=== PATIENT | male | born 1950 | race Caucasian/White ===

== ENCOUNTER → 2018-12-14 14:30 | Outpatient (CLI) | payer OTHER, SELFPAY ==
[2018-12-24 11:58] LABS: Rubella Antibody IgG < 0.9 IU/mL (>15)
[2018-12-24 12:03] LABS: Rubeola Measles IgG > 300.00
== END ==
PROVIDERS: PCP Internal Medicine; Visit Provider Internal Medicine
DX: Z20.820 Contact with and (suspected) exposure to varicella (principal)
CPT/HCPCS: 36415; 86735; 86762; 86765; 86787

== ENCOUNTER → 2019-04-13 12:54 | Outpatient (CLI) | payer OTHER, SELFPAY ==
[2019-04-13 14:00] LABS: Aspartate Aminotransferase 36 IU/L (17-59); BUN Creatinine Ratio 18.9 (6-22); Blood Urea Nitrogen 17 mg/dL (9-20); Cholesterol 203 mg/dL (140-199); Estimated Glomerular Filt Rate > 60.0 mL/min (>60); Glucose 94 mg/dL (80-110); HDL Cholesterol 37 mg/dL (40-60); LDL Cholesterol Calculated 97 mg/dL (<100); Triglycerides 343 mg/dL (35-150)
[2019-04-13 14:26] LABS: Prostate Specific Antigen 1.22 ng/mL (0.10-4.00)
== END ==
PROVIDERS: PCP Internal Medicine; Visit Provider Internal Medicine
DX: E78.2 Mixed hyperlipidemia (principal); N40.0 Benign prostatic hyperplasia without lower urinary tract symptoms
CPT/HCPCS: 36415; 80061; 82565; 82947; 84153; 84450; 84520

== ENCOUNTER → 2019-04-27 07:44 | Outpatient (CLI) | payer OTHER, SELFPAY ==
--- NOTE | 2019-04-27 | DI.MRI.S_ITS ---
PROCEDURE: MR ANGIO HEAD WO CON INDICATIONS: Headache. Cerebral aneurysm, nonruptured TECHNIQUE: Noncontrast axial 3-D [id number] MR angiogram, with 3-dimensional maximum intensity projection (MIP) reformats of the internal carotid arteries and posterior circulation then performed. COMPARISON: None. FINDINGS: Image quality: Excellent. Anterior circulation: Intracranial internal carotid arteries demonstrate normal size and intraluminal flow signal. The flow within the paired anterior cerebral arteries is normal and symmetric. The flow within the middle cerebral arteries is normal and symmetric. The anterior communicating artery is seen. Normal flow noted in the posterior communicating arteries. No stenoses, occlusions, or aneurysms. Posterior circulation: Visualized portions of the vertebral arteries demonstrate normal caliber, and join to form a normal appearing basilar artery. The flow within the posterior cerebral arteries is normal and symmetric. No stenoses, occlusions, or aneurysms. IMPRESSION: 1. Negative examination. 2. No cerebral aneurysm. Dictated by: Felicity Cruz MD, PhD on 04/27/2019 at 10:08 Approved by: Felicity Cruz MD, PhD on 04/27/2019 at 11:38
== END ==
PROVIDERS: PCP Internal Medicine; Visit Provider Internal Medicine
DX: I67.1 Cerebral aneurysm, nonruptured (principal); R51 Headache
CPT/HCPCS: 70544

== ENCOUNTER → 2019-12-16 11:30 | Outpatient (CLI) | payer OTHER, SELFPAY ==
[2019-12-17 10:08] LABS: SARS CoV19 IgG Negative (Negative)
== END ==
PROVIDERS: PCP Internal Medicine; Referring Provider Internal Medicine; Visit Provider Internal Medicine
DX: Z20.828 Contact with and (suspected) exposure to other viral communicable diseases (principal)
CPT/HCPCS: 36415; 86769

== ENCOUNTER 2019-12-16 14:54 | Emergency (ER) | payer MEDICARE, SELFPAY ==
--- NOTE | 2019-12-16 15:03 | ED_ITS ---
HPI - Extremity Injury (Lower) <Graciela Taylor PA-C - Last Filed: 12/16/19 23:22> General Chief Complaint: Extremity Problem,Nontraumatic Stated Complaint: LEFT FOOT PAIN UNABLE TO WALK ON IT Time Seen by Provider: 12/16/19 15:01 Source: patient Mode of arrival: Wheelchair Limitations: no limitations History of Present Illness HPI Narrative: This is a previously healthy 69-year-old gentleman with diet controlled hypertension who presents to the emergency department complaining of left foot pain that began approximately an hour and half ago. He states that he was [place] and he twisted his foot and he felt a pop and immediately had pain to the point where he had quite a bit of difficulty walking back to his vehicle, his helped him and he tried to not put any weight on his left foot as much as possible. He went back to his house after the injury initially and iced his foot and called his primary care who recommended that he come to the emergency department he did not take any pain medicines. Said his pain is at least to 7 when he is attempting to bear any weight, however at rest he is only about a 3. He notes that he has been having some pain in the center of the ball of his foot on the left for the last few weeks but did not think a whole lot of it. He also says that he and his took a 23 mi bike ride which is very unusual for them yesterday and he wore soft flexible shoes. He also says he has been doing a lot more exercise lately in general with some workout routines for the last few weeks as well as additional workout routines provided by his physical therapist after he had a back surgery approximately 1 year ago as he is trying to lose weight and get healthier. He has a history of a fractured metatarsal over 20 years ago however he is not sure on which foot this occurred. He denies numbness, tingling, inability to perform range of motion, or any other symptoms he says this is an isolated complaint he did not fall he did not hit his head. complaint: foot injury Onset (ago): hour(s) (1) Injury: Left: foot Type of Injury: unknown and other (Twisting movement) Place: street/outdoors Severity: moderate Severity scale (1-10): 3 Relieving factors: cold therapy Exacerbating factors: weight bearing, movement and palpation Context: walking Associated symptoms: snap/pop sensation and able to partially bear weight Other symptoms: none Treatments prior to arrival: cold therapy Related Data Home Medications Medication Instructions Recorded Confirmed No Known Home Medications 02/15/19 02/15/19 Allergies Allergy/AdvReac Type Severity Reaction Status Date / Time azithromycin [AZITHROMYCIN] Allergy Mild HIVES Verified 02/15/19 15:14 Sulfa (Sulfonamide Allergy Mild CAN'T Verified 02/15/19 15:14 Antibiotics) REMEMBER [SULFA (SULFONAMIDE ANTIBIOTICS)] Review of Systems <Graciela Taylor PA-C - Last Filed: 12/16/19 23:22> Review of Systems Narrative: GENERAL: Denies chills, fatigue, malaise, fever, sweats. HEENT: Denies sinus pain, ear pain, sore throat, difficulty swallowing, dizziness. RESPIRATORY: Denies dyspnea, cough, wheezing, hemoptysis, sputum. CARDIOVASCULAR: Denies chest pain, palpitations, orthopnea, edema, GASTROINTESTINAL: Denies nausea, vomiting, abdominal pain, diarrhea, constipation, melena. : Denies dysuria, frequency, incontinence, hematuria, urinary retention. MUSCULOSKELETAL: denies weakness, joint pain, positive for or bony pain of the left foot SKIN: Denies rash, skin lesions, or other NEUROLOGIC: Denies weakness, headache, numbness, change in speech, confusion, seizures, incoordination. PSYCHIATRIC: No concerning psychosocial issues. 12 point review of systems is negative except for those stated above Patient History <Graciela Taylor PA-C - Last Filed: 12/16/19 23:22> Social History Smoking Status: Never smoker Exam <Graciela Taylor PA-C - Last Filed: 12/16/19 23:22> Narrative Exam Narrative: GENERAL: 69 year old patient appears stated age. Well-nourished, well-developed patient, in mild distress. HEAD: Atraumatic. Normocephalic. EYES: Pupils equal round and reactive. Extraocular motions intact. No scleral icterus. No injection or drainage. ENT: Nose without bleeding, purulent drainage. Throat without erythema, tonsillar hypertrophy or exudate. Airway patent. NECK: Trachea midline. Non tender CARDIOVASCULAR: Regular rate and rhythm without murmurs, gallops, or rubs. RESPIRATORY: Clear to auscultation. Breath sounds equal bilaterally. No wheezes, rales, or rhonchi. EXTREMITIES: He has normal range of motion of the ankle and toes, there is no appreciable swelling or visible hematoma on the left foot at the area of his pain, he does have some tenderness and sharp pain over the midshaft to distal 3rd-4th metatarsals on the superior of his foot. Capillary refill is intact less than 2 seconds on all toes of the affected foot. He has some tenderness with palpation of the ball of his foot on the left. He also has a strange sen sation when he extends at the ankle completely and points his toes in the left foot at the area of his pain. No edema or joint tenderness. BACK: Nontender without deformity or crepitance. No flank tenderness. NEURO: AOx3. SKIN: No rash or erythema of visible areas Initial Vital Signs Initial Vital Signs: Vital Signs Temperature 98.5 F 12/16/19 15:07 Pulse Rate 63 12/16/19 15:07 Respiratory Rate 16 12/16/19 15:07 Blood Pressure 135/77 12/16/19 15:07 Pulse Oximetry 97 12/16/19 15:07 <Jose Barr MD - Last Filed: 12/30/19 07:53> Initial Vital Signs Initial Vital Signs: Vital Signs Temperature 98.5 F 12/16/19 15:07 Pulse Rate 63 12/16/19 15:07 Respiratory Rate 16 12/16/19 15:07 Blood Pressure 135/77 12/16/19 15:07 Pulse Oximetry 97 12/16/19 15:07 Course <Graciela Taylor PA-C - Last Filed: 12/16/19 23:22> Orders Ordered: Discontinued Medications Acetaminophen (Tylenol) 650 mg PO NOW ONE Stop: 12/16/19 15:15 Last Admin: 12/16/19 15:22 Dose: 650 mg Documented by: [facility] Ibuprofen (Advil) 400 mg PO NOW ONE Stop: 12/16/19 15:15 Last Admin: 12/16/19 15:23 Dose: 400 mg Documented by: [facility] Consultations Consultation #1: Consulted Ortho to review treatment plan and discuss follow-up options. I spoke with advised that he can weightbear as tolerated in a walking shoe this looks like a minor stress fracture and he can follow-up with their office. 16:20 Vital Signs Vital signs: Vital Signs - 8 hr 12/16/19 16:45 Pulse Rate 62 Respiratory Rate 16 Blood Pressure [Right Arm] 131/69 Pulse Oximetry 95 <Jose Barr MD - Last Filed: 12/30/19 07:53> Orders Ordered: Discontinued Medications Acetaminophen (Tylenol) 650 mg PO NOW ONE Stop: 12/16/19 15:15 Last Admin: 12/16/19 15:22 Dose: 650 mg Documented by: [facility] Ibuprofen (Advil) 400 mg PO NOW ONE Stop: 12/16/19 15:15 Last Admin: 12/16/19 15:23 Dose: 400 mg Documented by: [facility] Vital Signs Vital signs: Vital Signs - 8 hr 12/16/19 16:45 Pulse Rate 62 Respiratory Rate 16 Blood Pressure [Right Arm] 131/69 Pulse Oximetry 95 MDM - Extremity Injury (Lower) <Graciela Taylor PA-C - Last Filed: 12/16/19 23:22> Differential Diagnosis Differential diagnosis: Likely other (fracture metatarsal 3rd Left) Medical Records Attestation: I reviewed the patient's medical records. Imaging Data Extremity x-ray #1: Attestation: I personally reviewed and interpreted this imaging study as follows: Radiologist's Impression: [address] [address] XRay Report Signed Patient: Dom Cervantes CMR#: [id number] : [id number]:[id number] Age/Sex: 69 / MDate of Service: 12/16/19 Loc: ED Accession Number: [id number] Procedure: XR foot LT min 3V Ordering Provider: Graciela Taylor P.A-C PROCEDURE: XR FOOT LT MIN 3V INDICATIONS: suspect stress fx 3rd/4th metatarsal TECHNIQUE: 3 views of the foot were acquired. COMPARISON: [facility], , FOOT 3V LEFT, 08/03/2012, 10:12. FINDINGS: Bones: Linear lucency in the proximal third metatarsal noted compatible with incomplete fracture. Plantar calcaneal spur noted. Mild osteoarthritis. Soft tissues: No tibiotalar joint effusion. Achilles tendon appears normal. IMPRESSION: Incomplete third metatarsal fracture. Dictated by: Felicity Cruz MD, PhD on 12/16/2019 at 15:51 Approved by: Felicity Cruz MD, PhD on 12/16/2019 at 15:52 [facility] Narrative Medical decision making narrative: This is a well-appearing active 69-year-old with diet-controlled hypertension who presents to the emergency department with left foot pain after a twisting injury with an audible pop sustained today while walking at the [place]. His history was notable for significant increase in physical activity recently. Differential diagnoses that were considered include sprain, strain, fracture, stress fracture X-ray revealed an incomplete fracture of the 3rd metatarsal. Orthopedics was consulted to discuss management and possible follow-up with Orthopedics versus PCP. Patient was discharged with an ortho shoe, emergency return precautions, follow- up plan, all questions were answered. Discharge Plan Departure Patient Disposition: Home Clinical Impression: Fracture of metatarsal bone of left foot Qualifiers: Encounter type: initial encounter Metatarsal bone: third Fracture type: closed Physeal involvement: not involving physis Qualified Code(s): S92.332A - Displaced fracture of third metatarsal bone, left foot, initial encounter for closed fracture Stress fracture Qualifiers: Encounter type: initial encounter Stress fracture site: foot Laterality: left Qualified Code(s): M84.375A - Stress fracture, left foot, initial encounter for fracture Discharge Date/Time: 12/16/19 16:51 Instructions: DI for Foot Fracture Activity Restrictions/Additional Instructions: Thank you for letting us to be part of your care today. There is no evidence of an emergent or life threatening illness at this time, but follow up with the orthopedic doctor in 1-5 days is recommended nonetheless to continue to rule out serious underlying causes of your symptoms and be re-evaluated. Please call the office for an appointment. We have provided you with an orthopedic shoe that you should wear, and it is okay to walk as tolerated but he should not do strenuous physical activity or weight-bearing be on normal daily activities until your follow-up appointment. You can alternate Tylenol and ibuprofen for pain, pain tension to how your foot is feeling and please return to the Emergency Department for any worsening or persistent symptoms. Please take medications as directed. Prescriptions: No Action No Known Home Medications RF: 0 Referrals: Zach Alexander MD [Primary Care Provider] - Sam Smith MD [Physician] -
[2019-12-16 15:07] VITALS: BP 135/77; PULSE 63; RESP 16; TEMP 36.9; O2SAT 97; BMI 32.8
[2019-12-16 15:11] VITALS: PULSE 60
--- NOTE | 2019-12-16 15:14 | DI.RAD.S_ITS ---
PROCEDURE: XR FOOT LT MIN 3V INDICATIONS: suspect stress fx 3rd/4th metatarsal TECHNIQUE: 3 views of the foot were acquired. COMPARISON: [facility], , FOOT 3V LEFT, 08/03/2012, 10:12. FINDINGS: Bones: Linear lucency in the proximal third metatarsal noted compatible with incomplete fracture. Plantar calcaneal spur noted. Mild osteoarthritis. Soft tissues: No tibiotalar joint effusion. Achilles tendon appears normal. IMPRESSION: Incomplete third metatarsal fracture. Dictated by: Felicity Cruz MD, PhD on 12/16/2019 at 15:51 Approved by: Felicity Cruz MD, PhD on 12/16/2019 at 15:52
[2019-12-16] MEDS: ACETAMINOPHEN 325 MG TABLET 650 MG PO (15:22)
[2019-12-16] MEDS: IBUPROFEN 400 MG TABLET PO (15:23)
[2019-12-16 16:45] VITALS: BP 131/69; PULSE 62; RESP 16; O2SAT 95
== END 2019-12-16 16:51 | disposition home or self-care (01) ==
PROVIDERS: Emergency Provider Student in an Organized Health Care Education/Training Program; PCP Internal Medicine
DX: Z20.828 Contact with and (suspected) exposure to other viral communicable diseases (principal); S92.332A Displaced fracture of third metatarsal bone, left foot, initial encounter for closed fracture; M84.375A Stress fracture, left foot, initial encounter for fracture; I10 Essential (primary) hypertension
CPT/HCPCS: 36415; 73630; 86769; 99283

== ENCOUNTER → 2020-12-12 13:51 | Outpatient (ROUT) | payer MEDICARE, SELFPAY ==
[2020-12-12 14:10] LABS: Aspartate Aminotransferase 36 IU/L (17-59); BUN Creatinine Ratio 19.2 (6-22); Blood Urea Nitrogen 15 mg/dL (9-20); Calcium 9.2 mg/dL (8.4-10.2); Carbon Dioxide 28 mmol/L (22-32); Chloride 105 mmol/L (98-107); Cholesterol 201 mg/dL (140-199); Estimated Glomerular Filt Rate > 60.0 mL/min (>60); Glucose 98 mg/dL (80-110); HDL Cholesterol 38 mg/dL (40-60); LDL Cholesterol Calculated 123 mg/dL (<100); Potassium 4.5 mmol/L (3.4-5.1); Sodium 140 mmol/L (137-145); Triglycerides 199 mg/dL (35-150)
[2020-12-13 06:44] LABS: HEMOLYSIS < 15 (0-50); Prostate Specific Antigen 1.78 ng/mL (0.10-4.00)
== END ==
PROVIDERS: PCP Internal Medicine; Visit Provider Internal Medicine
DX: E78.2 Mixed hyperlipidemia (principal); N18.30 Chronic kidney disease, stage 3 unspecified; N40.0 Benign prostatic hyperplasia without lower urinary tract symptoms
CPT/HCPCS: 80048; 80061; 84153; 84450